=== PATIENT | female | born 1990 | race American Indian/Alaskan Native ===

== ENCOUNTER 2017-04-18 18:51 | Emergency (ER) | payer BC, MEDICAID ==
--- NOTE | 2017-04-18 19:21 | ED PDOC ---
Arrival/HPI <Dipak Olivares - Last Filed: 04/18/17 20:03> - General Historian: Patient <Maxim Hammond - Last Filed: 04/27/17 14:40> - General Time Seen by Provider: 04/18/17 19:07 - History of Present Illness Narrative History of Present Illness (Text): 04/18/17 19:17 26 y/o female, no pmh, nkda, c/o upper abdominal pain with nausea/vomiting. Pt. stated that she woke up today with epigastric pain, feels nausea and been vomiting with couple episodes, no abdominal surgery, had 1 episode of loose stool, no blood, no recent antibiotic use for the past 6 weeks, no recent traveling, no chest pain or shortness of breath, no palpitation, no urinary symptoms, no other medical or psychological complaints. (Maxim Hammond) Past Medical History - Provider Review Nursing Documentation Reviewed: Yes <Maxim Hammond - Last Filed: 04/27/17 14:40> Family/Social History - Physician Review Nursing Documentation Reviewed: Yes Family/Social History: Unknown Family HX <Maxim Hammond - Last Filed: 04/27/17 14:40> Allergies/Home Meds <Dipak Olivares - Last Filed: 04/18/17 20:03> <Maxim Hammond - Last Filed: 04/27/17 14:40> Allergies/Adverse Reactions: Allergies No Known Allergies Allergy (Verified 04/18/17 19:12) Review of Systems - Review of Systems Constitutional: absent: Fatigue, Fevers Eyes: absent: Vision Changes ENT: absent: Hearing Changes Respiratory: absent: SOB, Cough Cardiovascular: absent: Chest Pain Gastrointestinal: Abdominal Pain, Nausea, Vomiting. absent: Diarrhea Musculoskeletal: absent: Arthralgias, Back Pain Skin: absent: Rash, Pruritis, Skin Lesions Neurological: absent: Headache, Dizziness <Maxim Hammond - Last Filed: 04/27/17 14:40> Physical Exam Vital Signs Reviewed: Yes Temperature: Afebrile Blood Pressure: Normal Pulse: Regular Respiratory Rate: Normal Appearance: Positive for: Well-Appearing, Non-Toxic, Comfortable Pain Distress: None Mental Status: Positive for: Alert and Oriented X 3 - Systems Exam Head: Present: Atraumatic, Normocephalic Pupils: Present: PERRL Extroacular Muscles: Present: EOMI Conjunctiva: Present: Normal Ears: Present: NORMAL TM, Normal Canal. No: Erythema Mouth: Present: Moist Mucous Membranes Neck: Present: Normal Range of Motion Respiratory/Chest: Present: Clear to Auscultation, Good Air Exchange. No: Respiratory Distress, Accessory Muscle Use Cardiovascular: Present: Regular Rate and Rhythm, Normal S1, S2. No: Murmurs Abdomen: Present: Tenderness (+epigastric tenderness), Normal Bowel Sounds. No : Distention, Peritoneal Signs, Rebound, Guarding Back: Present: Normal Inspection Upper Extremity: Present: Normal Inspection. No: Cyanosis, Edema Lower Extremity: Present: Normal Inspection. No: Edema Neurological: Present: GCS=15, CN II-XII Intact, Speech Normal Skin: Present: Warm, Dry, Normal Color. No: Rashes Psychiatric: Present: Alert, Oriented x 3, Normal Insight, Normal Concentration <Maxim Hammond - Last Filed: 04/27/17 14:40> Vital Signs Temp Pulse Resp BP Pulse Ox 04/18/17 21:15 16 98 04/18/17 19:51 82 14 105/60 99 04/18/17 19:16 98.2 F 93 H 16 104/74 100 04/18/17 19:11 98.2 F 93 H 18 104/74 100 Medical Decision Making <Dipak Olivares - Last Filed: 04/18/17 20:03> - Lab Interpretations I have reviewed the lab results: Yes Interpretation: No clinic. lab abnormalty - RAD Interpretation Freezer Worker: Radiologist <Maxim Hammond - Last Filed: 04/27/17 14:40> ED Course and Treatment: 04/18/17 19:20 -labs/ua -gallbladder sonogram -IVF/pepcid/zofran -observe and reasses 04/18/17 20:53 -sonogram show no gall stones and negative desai sign, there is fatty liver noted. -Labs show no acute finding. -UA show no UTI -Discharge home with pepcid, zofran, stay hydrated, avoid soda/hot and spicy food/fried food, avoid eating 2 hours before sleeping, follow up with your own pmd and GI within 2 days, return to the ER for any new or worsening signs or symptoms. (Maxim Hammond) - Lab Interpretations Lab Results: 04/18/17 20:10 04/18/17 20:10 Lab Results 04/18/17 20:10: Sodium 140, Potassium 3.9, Chloride 102, Carbon Dioxide 27, Anion Gap 15, BUN 12, Creatinine 0.6, Est GFR ( Amer) > 60, Est GFR (Non- Af Amer) > 60, Random Glucose 83, Calcium 9.2, Total Bilirubin 1.8 H, AST 25, ALT 23, Alkaline Phosphatase 56, Total Protein 7.8, Albumin 4.5, Globulin 3.3, Albumin/Globulin Ratio 1.4, Lipase 26 04/18/17 20:10: WBC 7.9, RBC 4.47, Hgb 12.7, Hct 34.8 L, MCV 77.9 L, MCH 28.4, MCHC 36.5, RDW 13.8, Plt Count 224, MPV 11.3 H, Gran % 82.5 H, Lymph % (Auto) 13.9 L, [place] % (Auto) 2.8, Eos % (Auto) 0.8 L, Baso % (Auto) 0.0, Gran # 6.48, Lymph # 1.1 L, [place] # 0.2, Eos # 0.1, Baso # 0.00 04/18/17 19:22: Urine Color Yellow, Urine Appearance Clear, Urine pH 6.0, Ur Specific [place] >= 1.030, Urine Protein Trace H, Urine Glucose (UA) Negative, Urine Ketones 40 H, Urine Blood Negative, Urine Nitrate Negative, Urine Bilirubin Negative, Urine Urobilinogen 1.0 H, Ur Leukocyte Esterase Negative, Urine RBC 0 - 2, Urine WBC 0 - 2 - RAD Interpretation Radiology Orders: 04/18/17 19:16 GALL BLADDER [US] Stat FINDINGS: Gallbladder: Appears mildly contracted. Otherwise unremarkable in appearance, without evidence of gallstones, significant gallbladder wall thickening, or pericholecystic fluid. Reportedly negative sonographic Desai's sign. Common bile duct: Does not appear abnormally dilated, measuring less than 6 mm in diameter. Liver: Demonstrates mildly increased parenchymal echogenicity, most likely due to mild fatty infiltration. Otherwise within normal limits in appearance. Measures 13.4 cm in length. Normal flow seen in the main portal vein on color and Doppler imaging. Pancreas: Within normal limits in appearance. Right kidney: Within normal limits in appearance. Measures 9.2 cm in length. No evidence of hydronephrosis. IMPRESSION: Mild fatty infiltration of the liver. Otherwise unremarkable exam. No evidence of gallstones or cholecystitis. See above for remaining findings. Thank you for allowing us to participate in the care of your patient. Dictated and Authenticated by: Laura Felton MD 04/18/2017 8:21 PM Eastern Time ([place] & [place]) (Maxim Hammond) - Medication Orders Current Medication Orders: Discontinued Medications Famotidine (Pepcid) 20 mg IVP STAT STA Stop: 04/18/17 19:17 Last Admin: 04/18/17 20:21 Dose: 20 mg Sodium Chloride (Sodium Chloride 0.9%) 1,000 mls @ 999 mls/hr IV .Q1H1M STA Stop: 04/18/17 20:16 Last Admin: 04/18/17 20:41 Dose: Not Given Non-Admin Reason: Patient Refused Ondansetron HCl (Zofran Inj) 4 mg IM STAT STA Stop: 04/18/17 19:17 Last Admin: 04/18/17 20:21 Dose: 4 mg - PA / PESTICIDE APPLICATOR / Resident Statement REAGAN has reviewed & agrees with the documentation as recorded. <Dipak Olivares - Last Filed: 04/18/17 20:03> - PA / PESTICIDE APPLICATOR / Resident Statement REAGAN has reviewed & agrees with the documentation as recorded. <Maxim Hammond - Last Filed: 04/27/17 14:40> Disposition/Present on Arrival <Dipak Olivares - Last Filed: 04/18/17 20:03> - Present on Arrival Any Indicators Present on Arrival: No History of DVT/PE: No History of Uncontrolled Diabetes: No Urinary Catheter: No History of Decub. Ulcer: No - Disposition Have Diagnosis and Disposition been Completed?: Yes Disposition Time: 19:21 Patient Plan: Discharge <Maxim Hammond - Last Filed: 04/27/17 14:40> - Disposition Diagnosis: Gastritis, Fatty liver Disposition: HOME/ ROUTINE Condition: IMPROVED Additional Instructions: Discharge home with pepcid, zofran, stay hydrated, avoid soda/hot and spicy food /fried food, avoid eating 2 hours before sleeping, follow up with your own pmd and GI within 2 days, return to the ER for any new or worsening signs or symptoms. Prescriptions: Famotidine [Pepcid] 20 mg PO BID PRN #20 tab PRN Reason: Other Ondansetron [Zofran] 4 mg PO Q8H PRN #10 tab PRN Reason: Nausea/Vomiting Referrals: Ehsan Marsh MD [Staff Provider] - Follow up with primary [facility] [place] [Outside] - Follow up with primary Forms: WORK NOTE
[2017-04-18 19:31] VITALS: TEMP 98.2; BMI 18.4
[2017-04-18 19:34] LABS: URINE BILIRUBIN NEGATIVE (NEGATIVE); URINE BLOOD NEGATIVE (NEGATIVE); URINE GLUCOSE (UA) NEGATIVE (NEGATIVE); URINE LEUKOCYTE ESTERASE NEGATIVE Leu/uL (NEGATIVE); URINE NITRATE NEGATIVE (NEGATIVE); URINE PROTEIN TRACE mg/dL (<30 mg/dL)
[2017-04-18 19:35] LABS: URINE APPEARANCE CLEAR (CLEAR); URINE COLOR YELLOW (YELLOW)
[2017-04-18 19:47] LABS: URINE RBC 0 - 2 /hpf (0-2); URINE WBC 0 - 2 /hpf (0-6)
[2017-04-18 19:53] VITALS: BP 105/60; PULSE 82
[2017-04-18] MEDS: Sodium Chloride 0.9% 1,000 ML IV STA ×2 (20:21→20:41)
--- NOTE | 2017-04-18 20:22 | US ---
EXAM: US Abdomen Limited, Right Upper Quadrant CLINICAL HISTORY: 26 years old, female; Pain; Abdominal pain; Additional info: Upper abdominal pain x 1 day TECHNIQUE: Real-time ultrasound of the right upper quadrant with image documentation. EXAM DATE/TIME: 04/18/2017 7:16 PM COMPARISON: No relevant prior studies available. FINDINGS: Gallbladder: Appears mildly contracted. Otherwise unremarkable in appearance, without evidence of gallstones, significant gallbladder wall thickening, or pericholecystic fluid. Reportedly negative sonographic Desai's sign. Common bile duct: Does not appear abnormally dilated, measuring less than 6 mm in diameter. Liver: Demonstrates mildly increased parenchymal echogenicity, most likely due to mild fatty infiltration. Otherwise within normal limits in appearance. Measures 13.4 cm in length. Normal flow seen in the main portal vein on color and Doppler imaging. Pancreas: Within normal limits in appearance. Right kidney: Within normal limits in appearance. Measures 9.2 cm in length. No evidence of hydronephrosis. IMPRESSION: Mild fatty infiltration of the liver. Otherwise unremarkable exam. No evidence of gallstones or cholecystitis. See above for remaining findings.
[2017-04-18 20:34] LABS: EOS # 0.1 (0.0-0.7); EOS % 0.8 % (1.5-5.0); GRAN # 6.48 (1.4-6.5); GRAN % 82.5 % (50.0-68.0); HEMOGLOBIN 12.7 gm/dL (12.0-16.0); LYMPH # 1.1 (1.2-3.4); LYMPH % 13.9 % (22.0-35.0); MEAN CELL VOLUME 77.9 fL (80.0-105.0); MEAN CORPUSCULAR HEMOGLOBIN 28.4 pg (25.0-35.0); MEAN CORPUSCULAR HGB CONC 36.5 g/dl (31.0-37.0); MEAN PLATELET VOLUME 11.3 fl (7.0-11.0); MONO # 0.2 (0.1-0.6); MONO % 2.8 % (1.0-6.0); PLATELET COUNT 224 10^3/uL (120.0-450.0); RBC 4.47 10^6/uL (3.5-6.1); RED CELL DISTRIBUTION WIDTH 13.8 % (11.5-14.5); WHITE BLOOD COUNT 7.9 10^3/ul (4.5-11.0)
[2017-04-18 20:46] LABS: ALB/GLOB RATIO 1.4 (1.1-1.8); ALBUMIN 4.5 g/dL (3.0-4.8); ALT/SGPT 23 U/L (7-56); AST/SGOT 25 U/L (15-39); BLOOD UREA NITROGEN 12 mg/dL (7-21); CALCIUM 9.2 mg/dL (8.4-10.5); GFR AFRICAN-AMERICAN > 60; GFR NON-AFRICAN AMERICAN > 60; LIPASE 26 U/L (23-300)
[2017-04-18 21:16] VITALS: RESP 16; O2SAT 98
== END 2017-04-18 21:16 | disposition home or self-care (01) ==
LOC: ED 18:51
DX: K29.70 Gastritis, unspecified, without bleeding (principal)
CPT/HCPCS: 76705; 80053; 81001; 83690; 85025; 96372; 96374; 99283; J2405